=== PATIENT | female | born 1985 | race Native Hawaiian/Other Pacific Islander ===

== ENCOUNTER 2020-05-29 14:36 | Outpatient (CLI) | payer OTHER | END 2020-05-29 21:13 | disposition home or self-care (01) | LOC: RAD 14:36 | PROVIDERS: ATTEND Physician Assistant | DX: M25.551 Pain in right hip (principal); M22.2X1 Patellofemoral disorders, right knee ==

== ENCOUNTER 2021-03-12 09:34 | Outpatient (CLI) | payer OTHER | END 2021-03-12 20:04 | disposition home or self-care (01) | LOC: MRI 09:34 | PROVIDERS: ATTEND Orthopaedic Surgery | DX: M25.561 Pain in right knee (principal) ==